=== PATIENT | male | born 1980 | race Caucasian/White ===

== ENCOUNTER 2022-05-10 08:50 | Inpatient (IN) | payer OTHER ==
[2022-05-10] MEDS ORDERED: Cefepime 2 GM VIAL ONE (09:04)
[2022-05-10 09:23] LABS: #Eosinphils 0.1 10x3/uL (0.0-0.5); #Monocytes 1.1 10x3/uL (0.0-1.1); #Neutrophils 10.7 10x3/uL (1.5-8.4); %Basophils 0.2 % (0.0-2.0); %Eosinophils 0.8 % (0.0-6.0); %Lymphocytes 9.9 % (18.0-47.0); %Monocytes 8.1 % (0.0-10.0); %Neutrophils 80.7 % (40.0-75.0); Hemoglobin 17.8 g/dL (13.5-17.5); Mean Corpuscular HGB CONC 35.7 g/dL (32.0-36.0); Mean Corpuscular Hemoglobin 29.8 pg (27.0-33.0); Mean Corpuscular Volume 83.3 fl (81.2-95.1); Mean Platelet Volume 9.9 fl (7.4-10.4); Platelet Count 191 10x3/uL (150-450); RBC Distribution Width 12.5 % (11.5-14.5); Red Blood Cell (RBC) Count 5.98 10x6/uL (4.32-5.72); White Blood Cell (WBC) Count 13.3 10x3/uL (3.5-10.5)
[2022-05-10 09:25] LABS: ALT (SGPT) 218 U/L (8-55); AST (SGOT) 127 U/L (5-34); Albumin 4.2 g/dL (3.5-5.0); Alkaline Phosphatase 69 U/L (40-110); Anion Gap 16 mmol/L (10-20); BUN (Urea Nitrogen) 15 mg/dL (8.9-20.6); Calc. Creatinine Clearance 0 mL/min (70-130); Calcium 9.6 mg/dL (7.8-10.44); Carbon Dioxide 18 mmol/L (22-29); Chloride 104 mmol/L (98-107); Estimated GFR 103; Globulin 4.1 g/dL (2.4-3.5); Glucose 97 mg/dL (70-105); Potassium 3.8 mmol/L (3.5-5.1); Protein, Total 8.3 g/dL (6.0-8.3); Sodium 134 mmol/L (136-145)
[2022-05-10] MEDS ORDERED: Ketorolac Tromethamine 30 MG/ML VIAL ONE (09:43)
[2022-05-10] MEDS ORDERED: Morphine 4 MG/ML VIAL ONE ×2 (09:45→11:19)
[2022-05-10 09:46] LABS: SARS-CoV-2 NAA Rapid Test Not Detected (NotDetected)
[2022-05-10 10:06] LABS: Bilirubin Neg (Negative); Blood, Urine 250 (Negative); Clarity Cloudy (Clear); Glucose, Urine (Dipstick) Normal (Negative); Ketone, Urine Negative (Negative); Leukocyte 500 (Negative); Nitrite Positive (Negative); Protein, Urine (Dipstick) 500 mg/dl (Neg-Trace)
[2022-05-10 10:08] LABS: PTT 51.7 sec (22.0-33.0); Prothrombin Time 65.3 sec (9.5-12.1)
[2022-05-10 10:10] LABS: INR-International Normal Ratio 6.7
[2022-05-10] MEDS ORDERED: Iopamidol 300 61% 100 ML VIAL FS ONE (10:11)
[2022-05-10 10:20] LABS: RBC/HPF Greater than 50 HPF (0-3)
[2022-05-10 10:21] LABS: Bacteria/HPF 2+ HPF (None Seen)
[2022-05-10 10:23] LABS: Squamous Epithelial 0-3 HPF (0-3); Transitional Epithelial 0-3 HPF (None Seen)
[2022-05-10 11:15] LABS: Blood, Urine 250 (Negative); Clarity Cloudy (Clear); Glucose, Urine (Dipstick) Normal (Negative); Leukocyte 500 (Negative); Protein, Urine (Dipstick) 100 mg/dl (Neg-Trace)
[2022-05-10] MEDS ORDERED: Ondansetron PF 4 MG/2 ML Vial ONE (11:20)
[2022-05-10 11:28] LABS: Bilirubin Neg (Negative); Ketone, Urine Negative (Negative); Nitrite Negative (Negative); Specific Gravity, Urine 1.005 (1.002-1.036)
[2022-05-10 11:57] LABS: Lactic Acid 4.2 mmol/L (0.5-2.2)
[2022-05-10] MEDS ORDERED: Acetaminophen 325 MG TAB PO PRN (12:05)
[2022-05-10] MEDS ORDERED: Senokot S 8.6-50 MG TAB PO PRN (12:05)
[2022-05-10] MEDS ORDERED: Ondansetron PF 4 MG/2 ML Vial IVP PRN (12:05)
[2022-05-10] MEDS ORDERED: Ondansetron ODT 4 MG TAB PO PRN (12:05)
[2022-05-10] MEDS: Sodium Chloride 0.9% 1,000 ML IV SCH ×2 (15:30→22:00)
[2022-05-10] MEDS: HYDROcodone/Acetaminophen 10/325 mg Tablet PO PRN ×2 (16:06→23:46)
[2022-05-10 16:45] VITALS: BMI 34.5
[2022-05-10] MEDS ORDERED: Prevnar 13-Val Conj/PF 0.5 ML SYRINGE IM ONE (17:00)
[2022-05-10 18:13] LABS: Prothrombin Time 53.5 sec (9.5-12.1)
[2022-05-10 18:16] LABS: INR-International Normal Ratio 5.4
[2022-05-10] MEDS ORDERED: Phytonadione 10 MG/ML AMP PO SCH (19:15)
[2022-05-10] MEDS: Famotidine 20 MG TAB PO SCH (22:35)
[2022-05-10] MEDS: Cefepime 1 GM in Sodium Chloride 0.9% 100 ML IVPB SCH (22:35)
[2022-05-11 05:22] LABS: #Eosinphils 0.1 10x3/uL (0.0-0.5); #Monocytes 0.9 10x3/uL (0.0-1.1); #Neutrophils 8.5 10x3/uL (1.5-8.4); %Basophils 0.3 % (0.0-2.0); %Eosinophils 0.4 % (0.0-6.0); %Lymphocytes 17.7 % (18.0-47.0); %Monocytes 7.9 % (0.0-10.0); %Neutrophils 73.4 % (40.0-75.0); Hemoglobin 14.3 g/dL (13.5-17.5); Mean Corpuscular HGB CONC 36.3 g/dL (32.0-36.0); Mean Corpuscular Volume 82.6 fl (81.2-95.1); Mean Platelet Volume 9.5 fl (7.4-10.4); Platelet Count 142 10x3/uL (150-450); RBC Distribution Width 13.1 % (11.5-14.5); Red Blood Cell (RBC) Count 4.77 10x6/uL (4.32-5.72); White Blood Cell (WBC) Count 11.6 10x3/uL (3.5-10.5)
[2022-05-11 05:24] LABS: Anion Gap 9 mmol/L (10-20); BUN (Urea Nitrogen) 11 mg/dL (8.9-20.6); Calc. Creatinine Clearance 196 mL/min (70-130); Calcium 8.2 mg/dL (7.8-10.44); Carbon Dioxide 20 mmol/L (22-29); Chloride 107 mmol/L (98-107); Estimated GFR 114; Glucose 89 mg/dL (70-105); Potassium 3.5 mmol/L (3.5-5.1); Sodium 132 mmol/L (136-145)
[2022-05-11 05:31] LABS: Prothrombin Time 45.5 sec (9.5-12.1)
[2022-05-11 05:42] LABS: INR-International Normal Ratio 4.6
[2022-05-11] MEDS: Sodium Chloride 0.9% 1,000 ML IV SCH ×2 (06:46→16:10)
[2022-05-11] MEDS: Famotidine 20 MG TAB PO SCH ×2 (09:54→21:24)
[2022-05-11] MEDS: Cefepime 1 GM in Sodium Chloride 0.9% 100 ML IVPB SCH ×2 (09:54→21:24)
[2022-05-11] MEDS: HYDROcodone/Acetaminophen 10/325 mg Tablet PO PRN ×2 (09:55→21:24)
[2022-05-11] MEDS ORDERED: Cefepime 1 GM VIAL ONE (20:32)
[2022-05-11] MEDS: diphenhydrAMINE 25 MG CAP PO PRN (21:24)
[2022-05-12 05:17] LABS: #Eosinphils 0.5 10x3/uL (0.0-0.5); #Monocytes 0.9 10x3/uL (0.0-1.1); #Neutrophils 4.6 10x3/uL (1.5-8.4); %Basophils 0.2 % (0.0-2.0); %Eosinophils 5.7 % (0.0-6.0); %Monocytes 11.6 % (0.0-10.0); %Neutrophils 57.3 % (40.0-75.0); Hemoglobin 13.6 g/dL (13.5-17.5); Mean Corpuscular Hemoglobin 30.1 pg (27.0-33.0); Mean Corpuscular Volume 83.6 fl (81.2-95.1); Mean Platelet Volume 10.1 fl (7.4-10.4); Platelet Count 149 10x3/uL (150-450); RBC Distribution Width 12.9 % (11.5-14.5); Red Blood Cell (RBC) Count 4.52 10x6/uL (4.32-5.72)
[2022-05-12 05:20] LABS: Anion Gap 11 mmol/L (10-20); BUN (Urea Nitrogen) 11 mg/dL (8.9-20.6); Calc. Creatinine Clearance 204 mL/min (70-130); Calcium 8.4 mg/dL (7.8-10.44); Carbon Dioxide 19 mmol/L (22-29); Chloride 108 mmol/L (98-107); Estimated GFR 116; Glucose 119 mg/dL (70-105); Potassium 3.6 mmol/L (3.5-5.1); Sodium 134 mmol/L (136-145)
[2022-05-12 05:23] LABS: INR-International Normal Ratio 2.8; Prothrombin Time 28.7 sec (9.5-12.1)
[2022-05-12] MEDS: HYDROcodone/Acetaminophen 10/325 mg Tablet PO PRN ×3 (10:04→21:14)
[2022-05-12] MEDS: Cefepime 1 GM in Sodium Chloride 0.9% 100 ML IVPB SCH (10:04)
[2022-05-12] MEDS: Famotidine 20 MG TAB PO SCH ×2 (10:04→21:15)
[2022-05-12] MEDS: diphenhydrAMINE 25 MG CAP PO PRN ×2 (10:05→21:16)
[2022-05-12] MEDS ORDERED: Warfarin Sodium 5 MG TAB PO SCH (17:00)
[2022-05-13 05:26] LABS: Prothrombin Time 21.3 sec (9.5-12.1)
[2022-05-13] MEDS: HYDROcodone/Acetaminophen 10/325 mg Tablet PO PRN (09:19)
[2022-05-13] MEDS: Famotidine 20 MG TAB PO SCH (09:19)
[2022-05-13 10:04] VITALS: TEMP 98
[2022-05-13 13:06] VITALS: BP 140/86
== END 2022-05-13 14:36 | DRG 698 ==
LOC: CSHERS 08:50 → EEVIPCON 14:00 → CSHTELE 14:00
PROVIDERS: ADMIT Internal Medicine; ATTEND Family Medicine
DX: T83.512A Infection and inflammatory reaction due to nephrostomy catheter, initial encounter (principal); A41.9 Sepsis, unspecified organism; R65.20 Severe sepsis without septic shock; K56.609 Unspecified intestinal obstruction, unspecified as to partial versus complete obstruction; N12 Tubulo-interstitial nephritis, not specified as acute or chronic; I73.9 Peripheral vascular disease, unspecified; N13.9 Obstructive and reflux uropathy, unspecified; Y83.8 Other surgical procedures as the cause of abnormal reaction of the patient, or of later complication, without mention of misadventure at the time of the procedure; Z20.822 Contact with and (suspected) exposure to COVID-19; Z88.8 Allergy status to other drugs, medicaments and biological substances; Z79.899 Other long term (current) drug therapy; Z79.01 Long term (current) use of anticoagulants; Z98.890 Other specified postprocedural states
CPT/HCPCS: 36415; 74177; 80048; 80053; 81003; 81015; 83605; 85025; 85610; 85730; 87040; 87086; 93005; 94760; J0692; J1885; J1956; J2270; J2405; J3370; J3430; J3490; J7050; Q9967; U0002

== ENCOUNTER 2022-06-03 13:12 | Emergency (ER) | payer OTHER ==
[2022-06-03] MEDS ORDERED: VANCOMYCIN 2 GRAM/400 ML BAG 2 GM in Premix Bag 1 BAG IVPB SCH (13:45)
[2022-06-03] MEDS ORDERED: Acetaminophen 500 MG TAB ONE (13:50)
[2022-06-03] MEDS ORDERED: Ondansetron PF 4 MG/2 ML Vial ONE (13:50)
[2022-06-03] MEDS ORDERED: Morphine 4 MG/ML VIAL ONE ×3 (13:50→22:02)
[2022-06-03] MEDS ORDERED: cefTRIAXone\\ROCEPHIN 2 GM VIAL ONE (13:51)
[2022-06-03] MEDS ORDERED: Fentanyl 100 MCG/2 ML VIAL ONE ×2 (14:01→15:44)
[2022-06-03 14:07] LABS: #Eosinphils 0.2 10x3/uL (0.0-0.5); #Monocytes 0.8 10x3/uL (0.0-1.1); #Neutrophils 7.2 10x3/uL (1.5-8.4); %Basophils 0.2 % (0.0-2.0); %Eosinophils 2.4 % (0.0-6.0); %Lymphocytes 11.5 % (18.0-47.0); %Monocytes 8.2 % (0.0-10.0); %Neutrophils 77.3 % (40.0-75.0); Hemoglobin 16.4 g/dL (13.5-17.5); Mean Corpuscular HGB CONC 35.5 g/dL (32.0-36.0); Mean Corpuscular Volume 84.6 fl (81.2-95.1); Mean Platelet Volume 9.9 fl (7.4-10.4); Platelet Count 166 10x3/uL (150-450); RBC Distribution Width 12.9 % (11.5-14.5); Red Blood Cell (RBC) Count 5.46 10x6/uL (4.32-5.72); White Blood Cell (WBC) Count 9.3 10x3/uL (3.5-10.5)
[2022-06-03 14:21] LABS: ALT (SGPT) 253 U/L (8-55); AST (SGOT) 164 U/L (5-34); Alkaline Phosphatase 60 U/L (40-110); Anion Gap 12 mmol/L (10-20); BUN (Urea Nitrogen) 13 mg/dL (8.9-20.6); Calc. Creatinine Clearance 0 mL/min (70-130); Calcium 9.2 mg/dL (7.8-10.44); Carbon Dioxide 24 mmol/L (22-29); Chloride 104 mmol/L (98-107); Estimated GFR 109; Globulin 4.1 g/dL (2.4-3.5); Glucose 104 mg/dL (70-105); Potassium 4.2 mmol/L (3.5-5.1); Protein, Total 8.1 g/dL (6.0-8.3); Sodium 136 mmol/L (136-145)
[2022-06-03 14:39] LABS: Bilirubin Neg (Negative); Blood, Urine 250 (Negative); Clarity Slightly Cloudy (Clear); Glucose, Urine (Dipstick) Normal (Negative); Ketone, Urine Negative (Negative); Leukocyte 500 (Negative); Nitrite Negative (Negative); Protein, Urine (Dipstick) 30 mg/dl (Neg-Trace); Urobilinogen Normal mg/dL (Less than 2)
[2022-06-03 15:06] LABS: Bacteria/HPF None Seen HPF (None Seen); RBC/HPF Greater than 50 HPF (0-3); Squamous Epithelial None Seen HPF (0-3)
[2022-06-03 15:30] LABS: SARS-CoV-2 NAA Rapid Test Not Detected (NotDetected)
[2022-06-03 19:04] LABS: INR-International Normal Ratio 1.3; PTT 27.6 sec (22.0-33.0); Prothrombin Time 13.5 sec (9.5-12.1)
== END 2022-06-03 22:03 | disposition short-term general hospital (02) ==
LOC: CSHERS 13:12 → EEVIPCON 13:12 → CSHERS 22:03
DX: R10.9 Unspecified abdominal pain (principal); J90 Pleural effusion, not elsewhere classified; R50.9 Fever, unspecified; Z20.822 Contact with and (suspected) exposure to COVID-19; Z87.442 Personal history of urinary calculi
CPT/HCPCS: 36415; 71045; 74176; 80053; 81003; 81015; 83605; 85025; 85610; 85730; 87040; 87086; 96361; 96365; 96366; 96372; 96375; 96376; J0696; J2270; J2405; J3010; J3370; U0002